=== PATIENT | female | born 1965 | race Caucasian/White ===

== ENCOUNTER 2016-07-10 15:06 | Inpatient (IN) ==
[2016-07-10] MEDS ORDERED: DEXTROSE 50% 25 GM/50 ML VIAL IV ONE ×2 (15:22→16:57)
[2016-07-10] MEDS ORDERED: SODIUM CHLORIDE 0.9% 1,000 ML IV STA ×2 (15:47→17:11)
[2016-07-10] MEDS ORDERED: DEXTROSE 50% 25 GM/50 ML VIAL IV STA ×2 (15:52→17:10)
[2016-07-10 16:01] LABS: Basophils # 0.1 10*3/uL (0.0-0.2); Basophils % 0.4 % (0.0-0.8); Eosinophils # 0.2 10*3/uL (0.0-0.87); Eosinophils % 1.4 % (0.00-10.9); Hematocrit 41.4 VOL% (35.7-47.0); Hemoglobin 13.7 GM/DL (12.0-16.0); Immature Granulocytes % 0.7 %; Immature Granulocytes Absolute 0.11 #; Lymphocytes # 3.5 10*3/uL (1.4-4.0); Lymphocytes % 21.6 % (21.3-54.2); Mean Corpuscular HGB Conc 33.1 GM/DL (32-36); Mean Corpuscular Hemoglobin 30 PG (27-34); Mean Corpuscular Volume 91.8 FL (87-102); Mean Platelet Volume 10.7 FL (9.6-12.0); Monocytes # 1.2 10*3/uL (0.11-0.8); Monocytes % 7.3 % (1.7-12.7); Neutrophils # 11.2 10*3/uL (1.4-7.4); Neutrophils % 68.6 % (38.7-73.9); Platelet Count 358 T/CUMM (130-400); Red Blood Count 4.51 MC/CUMM (3.8-5.5); Red Cell Distribution Width 14.3 % (9.3-17.3); White Blood Count 16.3 T/CUMM (4-12)
[2016-07-10 16:12] LABS: Albumin 4.2 G/DL (3.4-5.0); Bilirubin,Total 0.5 MG/DL (0.2-1.0); Calcium 9.7 MG/DL (8.5-10.1); Osmolality,Calculated 265.1 MOS/KG (273-304); Potassium 4.1 MMOL/L (3.5-5.1); Total Protein 8.4 G/DL (6.4-8.3)
--- NOTE | 2016-07-10 16:22 | XRay Report ---
Referring Physician: Derek Angeles Exam: XR chest 1V portable Date: July 10, 2016 at 4:10 PM Reason: Altered mental status Comparison: Chest one view portable November 26, 2015 Findings: An electronic device is again present with leads projecting at the chest, slightly to the right of midline. The cardiac silhouette is normal in size. The interstitial markings and pulmonary vasculature are prominent, suggesting mild pulmonary edema. No pneumothorax or pleural fluid is identified. No acute osseous process is seen. Impression: The pulmonary vasculature and interstitial markings are prominent, especially in the right perihilar region. This is concerning for mild pulmonary edema. PROCEDURE INTERPRETED AT [facility] DEPARTMENT OF RADIOLOGY Final Report Signed by: Dr. Trey Chaney
[2016-07-10 16:49] LABS: Apearance,Urine CLOUDY (Clear); Blood, Urine Negative (Negative); Glucose,Urine (UA) >=500 mg/dL (Negative); Hyaline Casts,Urine 2 /LPF (0-3); Ketones,Urine 5 mg/dL (Negative); Mucus,Urine Occasional /LPF (Occasional); Nitrite,Urine Negative (Negative); Protein,Urine 30 MG/DL; RBC,Urine 1 /HPF (0-4); Urine Specific Gravity 1.022 (1.001-1.035); WBC,Urine 5 /HPF (0-6)
[2016-07-10 16:50] LABS: Bilirubin,Urine Moderate mg/dL (Negative); Urine Color Yellow (Yellow)
--- NOTE | 2016-07-10 17:35 | EKG Report ---
Stationary ECG Study [facility] ER Test Date: 07/10/2016 5:33:46 PM Pat Name: HERSON ANGULO Department: Room: Gender: F Unbundler: : 1965 Requested by: Derek Moraes Order Number: [id number] Reading MD: SEVERINO AVALOS Intervals [place] Rate: 92 P: 62 NE: 160 QRS: 55 QRSD: 87 T: 64 QT: 386 QTc: 435 Interpretive Statements SINUS RHYTHM at 92 bpm LOW QRS VOLTAGE IN PRECORDIAL LEADS Electronically Signed On 07-14-16 16:12:48 CDT by SEVERINO AVALOS [email or web address]
[2016-07-10] MEDS ORDERED: GLUCAGON 1 MG VIAL IM PRN (17:52)
[2016-07-10] MEDS ORDERED: DEXTROSE 50% 25 GM/50 ML VIAL IV PRN (17:52)
[2016-07-10] MEDS ORDERED: ONDANSETRON 4 MG/2 ML VIAL IV PRN (17:52)
[2016-07-10] MEDS ORDERED: ACETAMINOPHEN 325 MG TABLET PO PRN (17:52)
[2016-07-10] MEDS ORDERED: SODIUM CHLORIDE 0.9% 1,000 ML IV SCH (18:00)
[2016-07-10] MEDS ORDERED: DEXTROSE 5% 1,000 ML IV SCH (18:15)
--- NOTE | 2016-07-10 18:37 | Ultrasound Report ---
Referring Physician: Derek Angeles Exam: US gallbladder Date: July 10, 2016 Reason: Right upper quadrant abdominal pain Comparison: Limited abdominal ultrasound July 04, 2009 Technique: Grayscale and color flow ultrasound images of the right abdomen were obtained. Ultrasound images were captured and stored. Findings: The liver measures 19 cm in length. No suspicious hepatic lesion is identified. No gallstones are seen. However, there are a few gallbladder crystals. There is also mild shadowing at the gallbladder wall. This is similar to before and suggests Rokitansky-Aschoff sinuses/adenomyosis. No gallbladder wall calcification is seen on a previous CT. No gallbladder wall thickening or pericholecystic fluid is identified. However, the property caretaker reports a positive sonographic Lr's sign. The common bile duct is mildly prominent, measuring 0.6 cm in diameter. The pancreas is largely obscured by bowel gas. The right kidney measures 12.2 x 4.4 x 3.7 cm. No right hydronephrosis or suspicious renal lesion is identified. No ascites is seen. Impression: 1. There is again suggestion of cholesterolosis and Rokitansky-Aschoff sinuses/adenomyosis. This is similar to the previous study of July 04, 2009. The property caretaker also reports a positive sonographic Lr's sign. This is nonspecific given the otherwise normal appearance of the gallbladder. Further evaluation could be performed with a nuclear medicine biliary scan. 2. The common bile duct is mildly prominent, measuring 0.6 cm in diameter. A distal obstructing process is difficult to exclude, and please correlate with bilirubin levels. PROCEDURE INTERPRETED AT [facility] DEPARTMENT OF RADIOLOGY Final Report Signed by: Dr. Trey Chaney
[2016-07-10] MEDS ORDERED: SODIUM CHLORIDE 0.9% 500 ML IV ONE (22:17)
[2016-07-10] MEDS ORDERED: SUCRALFATE 1 GM/10 ML UDCUP PO PRN (22:39)
[2016-07-10] MEDS: SODIUM CHLORIDE 0.9% 1,000 ML IV SCH (22:41)
--- NOTE | 2016-07-10 22:52 | Family Practice History&Phys ---
Assessment and Plan (1) Diabetic ketoacidosis Status: Acute Assessment and plan: We will admit to the intensive care start on fluids and appropriate therapy Current Visit: No (2) Metabolic encephalopathy Status: Acute Assessment and plan: We will aggressively treat the diabetes and look for other sources of infection Current Visit: No (3) adult attention deficit disorder Status: Chronic Assessment and plan: Stable on present medication Current Visit: No (4) hypertension Status: Chronic Assessment and plan: Stable at present Current Visit: No (5) psoriatic arthritis Status: Chronic Assessment and plan: Stable on present medication Current Visit: No (6) type 2 diabetes mellitus Status: Chronic Assessment and plan: Blood sugars have been somewhat labile. Difficult to have patient comply with diet and exercise Current Visit: No History of Present Illness Chief complaint: Weakness, dizziness, and hyperglycemia History of present illness: Ms. Hernandez is a 51 year old female Patient is a 51-year-old white female well known to me who was seen in emergency room complaining of weakness, dizziness, confusion since awakening this a.m. Patient states that she checked her blood sugar is greater than 600. Family states that she was confused and disoriented on awakening this a.m. Patient related that sugars have been under adequate control until today. She was noted to have a blood sugar of 32 on arrival at the emergency room. She was given D50 but blood sugars initially remained low. Also noted to be hypotensive and confused. Denies chills fever cough nausea vomiting or any other related complaints. Patient was hospitalized in January with similar problems. In view of degree of symptoms she is being admitted to intensive care close observation therapy Home Medications Medication Instructions Recorded Confirmed Type Amitriptyline [Elavil] 10 mg PO TID 05/24/15 07/10/16 History Dextroamphetamine/Amphetamine 10 mg PO 1300 05/24/15 07/10/16 History [Adderall 10 mg Tablet] Gabapentin Cap/Tab [Neurontin 600 mg PO TID 05/24/15 07/10/16 History Cap/Tab] Losartan Potassium 50 mg PO QAM 05/24/15 07/10/16 History Pravastatin [Pravachol] 40 mg PO QAM 05/24/15 07/10/16 History Venlafaxine [Effexor] 150 mg PO BID 05/24/15 07/10/16 History Dextroamphetamine/Amphetamine 20 mg PO 0700 07/10/16 07/10/16 History [Dextroamp-Amphetamin 10 mg Tab] Insulin NPH Hum/Reg Insulin Hm 36 unit SUBCUT QPM 07/10/16 07/10/16 History [NovoLIN 70/30] Insulin NPH Hum/Reg Insulin Hm 49 unit SUBCUT QAM 07/10/16 07/10/16 History [NovoLIN 70/30] Insulin Regular, Human [NovoLIN R] 0 units SUBCUT DAILY PRN 07/10/16 07/10/16 History Pantoprazole Tab [Protonix Tab] 40 mg PO QAM 07/10/16 07/10/16 History Pioglitazone [Actos] 15 mg PO QAM 07/10/16 07/10/16 History Quetiapine Fumarate [Quetiapine 200 mg PO BEDTIME 07/10/16 07/10/16 History Fumarate] Sucralfate Liquid [Carafate Liquid] 1 gm PO ACHS PRN 07/10/16 07/10/16 History Allergies Allergy/AdvReac Type Severity Reaction Status Date / Time azithromycin [From Zithromax] Allergy Unknown/Unable Verified 11/26/15 07:57 to obtain Paroxetine [From Paxil] Allergy Unknown/Unable Verified 11/26/15 07:57 to obtain sertraline [From Zoloft] Allergy Unknown/Unable Verified 11/26/15 07:57 to obtain Zolpidem [From Ambien] Allergy Unknown/Unable Verified 11/26/15 07:57 to obtain Medical,Surgical,& Family Hx - Medical History Cardio: History of: Hypertension Psychological: History of: Anxiety Disorders, ADHD, Depression No history of: Bipolar Disorder, Psychiatric Problems Neurology: History of: Migraine No history of: Seizures Endocrine: History of: Diabetes Mellitus (IDDM), Dyslipidemia Rheumatology: History of;: Fibromyalgia Respiratory: History of: COPD Gastrointestinal: History of: GERD, Hemorrhoids, Polyps Musculoskeletal: History of: Back/Neck Problems (ruptured disk in neck and back) , Degenerative Disk Disease, Herniated Disk (in neck. stimulator in place) Hematology: No history of: Blood Transfusion Reaction Other: History of: Skin Problems (psoriasis with psoriatic arthritis) No history of: Anesthesia Reactions - Surgical History Abdominal Surgeries: Surgical HX of: Appendectomy, Colonoscopy, EGD, Hernia Repair Reproductive Surgeries: Surgical HX of;: Section, Hysterectomy Orthopedic Surgeries: Surgical HX of;: Implanted Devices (stimulator), Orthopedic Surgery (carpal tunnel bilat) - Family History Family History: Reports;: Family Cancer (dad-colon), Family Diabetes (unknown; fathers side), Family Hypertension (mom and dad) - Social History Smoking Status: Current every day smoker Frequency of Alcohol Use: None Type of Drug Use: None Marital Status: Lives With:: Spouse Functional capacity: independent ambulation Exam - Constitutional Vitals: Period Temp Pulse Resp BP Sys/Westfall Pulse Ox Last 24 Hr 95-98 16-20 84-98/57-66 97-97 General appearance: mild distress - Head Head exam: Present: normal inspection - ENT ENT exam: Present: normal exam - Neck Neck exam: Present: normal inspection - Respiratory Respiratory exam: Present: clear to auscultation bilaterally - Cardiovascular Cardiovascular exam: Present: tachycardia - GI/Abdominal GI/Abdominal exam: Present: hyperactive bowel sounds, tenderness - Extremities Exam Extremities exam: Present: normal inspection - Back Exam Back exam: Present: normal inspection - Neurological Exam Neurological exam: Present: altered - Psychiatric Psychiatric exam: Present: flat affect - Skin Skin exam: Present: normal color Results - Labs CBC & BMP: 07/10/16 15:27 07/10/16 15:27
[2016-07-11] MEDS ORDERED: GLUCAGON 1 MG VIAL IM PRN ×2 (01:28→08:16)
[2016-07-11] MEDS: INSULIN LISPRO 100 UNIT/ML SUBCUT SCH ×5 (01:58→22:58)
[2016-07-11] MEDS: DOCUSATE SODIUM 100 MG CAPSULE PO SCH ×3 (01:59→22:57)
[2016-07-11] MEDS: SODIUM CHLORIDE 0.9% 1,000 ML IV SCH ×2 (03:11→11:11)
[2016-07-11 05:02] LABS: Basophils % 0.4 % (0.0-0.8); Eosinophils # 0.3 10*3/uL (0.0-0.87); Eosinophils % 3.2 % (0.00-10.9); Hematocrit 35.5 VOL% (35.7-47.0); Hemoglobin 11.5 GM/DL (12.0-16.0); Immature Granulocytes % 0.3 %; Immature Granulocytes Absolute 0.03 #; Lymphocytes % 29.3 % (21.3-54.2); Mean Corpuscular HGB Conc 32.4 GM/DL (32-36); Mean Corpuscular Hemoglobin 30 PG (27-34); Mean Corpuscular Volume 92.7 FL (87-102); Mean Platelet Volume 10.2 FL (9.6-12.0); Monocytes # 0.7 10*3/uL (0.11-0.8); Monocytes % 6.4 % (1.7-12.7); Neutrophils # 6.3 10*3/uL (1.4-7.4); Neutrophils % 60.4 % (38.7-73.9); Platelet Count 232 T/CUMM (130-400); Red Blood Count 3.83 MC/CUMM (3.8-5.5); Red Cell Distribution Width 14.3 % (9.3-17.3); White Blood Count 10.4 T/CUMM (4-12)
[2016-07-11 05:46] LABS: Bilirubin,Total 0.6 MG/DL (0.2-1.0); Calcium 7.8 MG/DL (8.5-10.1); Osmolality,Calculated 289.1 MOS/KG (273-304); Potassium 3.7 MMOL/L (3.5-5.1); Risk Ratio 3.05; Total Protein 5.4 G/DL (6.4-8.3); VLDL CHOLESTEROL 21.4 MG/DL
[2016-07-11 05:47] LABS: Free T4 (Free Thyroxine) 0.96 NG/DL (0.76-1.46); Thyroid Stimulating Hormone 0.669 uIU/ml (0.358-3.74)
--- NOTE | 2016-07-11 07:40 | XRay Report ---
XR chest 1V portable Indication: SOB Comparison: Chest x-ray dated July 10, 2016 at 4:12 PM Technique: Single frontal view of the chest Findings: Heart size appears within normal limits. Mild progression of bilateral perihilar opacities which may reflect pneumonia or pulmonary edema. Osseous and surrounding soft tissue structures appear grossly unchanged. IMPRESSION: As above. PROCEDURE INTERPRETED AT [facility] DEPARTMENT OF RADIOLOGY Final Report Signed by: Dr Rene Head
[2016-07-11] MEDS ORDERED: DEXTROSE 50% 25 GM/50 ML VIAL IV PRN (08:16)
[2016-07-11] MEDS: GABAPENTIN 300 MG CAPSULE PO SCH ×3 (10:46→22:57)
[2016-07-11] MEDS: PRAVASTATIN 40 MG TABLET PO SCH (10:46)
[2016-07-11] MEDS: PANTOPRAZOLE 40 MG TABLET PO SCH (10:47)
[2016-07-11] MEDS: AMITRIPTYLINE 10 MG TABLET PO SCH ×3 (10:49→22:57)
[2016-07-11] MEDS: VENLAFAXINE 75 MG TABLET PO SCH ×2 (10:50→22:57)
[2016-07-11] MEDS: INSULIN NPH/REGULAR 70/30 100 UNIT/ML SUBCUT SCH (10:52)
[2016-07-11] MEDS: PIOGLITAZONE 15 MG TABLET PO SCH (10:52)
--- NOTE | 2016-07-11 12:14 | Family Practice Progress Note ---
Family Practice - PN: Subj Interval history: Patient is this a.m. states that she feels much better. She cannot think of any change in her diet and activity are symptoms that would explain the increase in her blood sugars. Her a.m. labs are unremarkable. Chest x-ray reveals possible bibasilar opacities but seems to be nonspecific and does not clarify whether this is true pneumonia. Ketones were negative. Did have an abnormal gallbladder ultrasound and is scheduled to have a HIDA scan this a.m.. Her physical examination is otherwise stable. Plan to transfer to the floor and continue present evaluation and treatment. If HIDA scan is abnormal will need to have surgical evaluation. Exam (Progress Note) - Constitutional Vitals: Period Temp Pulse Resp BP Sys/Westfall Pulse Ox Last 24 Hr 97.7 F-98.4 F 81-99 11-30 83-122/56-89 92-98 Results - Labs CBC & BMP: 07/11/16 04:34 07/11/16 04:34 Assessment and Plan (1) Diabetic ketoacidosis Status: Acute Assessment and plan: We will admit to the intensive care start on fluids and appropriate therapy Current Visit: No (2) Metabolic encephalopathy Status: Acute Assessment and plan: We will aggressively treat the diabetes and look for other sources of infection Current Visit: No (3) adult attention deficit disorder Status: Chronic Assessment and plan: Stable on present medication Current Visit: No (4) hypertension Status: Chronic Assessment and plan: Stable at present Current Visit: No (5) psoriatic arthritis Status: Chronic Assessment and plan: Stable on present medication Current Visit: No (6) type 2 diabetes mellitus Status: Chronic Assessment and plan: Blood sugars have been somewhat labile. Difficult to have patient comply with diet and exercise Current Visit: No
--- NOTE | 2016-07-11 15:25 | Nuclear Medicine Report ---
Nuclear medicine hepatobiliary scan Indication: Cholelithiasis Findings: The patient was injected with 5.0 mCi of 90 9M technetium Choletec intravenously. There is prompt hepatic uptake and excretion into the biliary system. Gallbladder fills normally. The patient was given 8 oz. of Ensure. Gallbladder ejection fraction is estimated at 48 %. Impression: Normal nuclear medicine hepatobiliary scan. PROCEDURE INTERPRETED AT [facility] DEPARTMENT OF RADIOLOGY Final Report Signed by: Dr. Bruce Ozuna
[2016-07-11] MEDS ORDERED: INSULIN NPH/REGULAR 70/30 100 UNIT/ML SUBCUT SCH (21:00)
[2016-07-11] MEDS: QUEtiapine 100 MG TABLET PO SCH (22:57)
[2016-07-12 06:01] LABS: Basophils # 0.1 10*3/uL (0.0-0.2); Basophils % 0.7 % (0.0-0.8); Eosinophils # 0.2 10*3/uL (0.0-0.87); Hematocrit 37.1 VOL% (35.7-47.0); Immature Granulocytes % 0.3 %; Immature Granulocytes Absolute 0.03 #; Lymphocytes # 1.9 10*3/uL (1.4-4.0); Lymphocytes % 21.4 % (21.3-54.2); Mean Corpuscular HGB Conc 32.3 GM/DL (32-36); Mean Corpuscular Hemoglobin 30 PG (27-34); Mean Corpuscular Volume 93.5 FL (87-102); Monocytes # 0.6 10*3/uL (0.11-0.8); Monocytes % 6.4 % (1.7-12.7); Neutrophils # 6.3 10*3/uL (1.4-7.4); Neutrophils % 69.2 % (38.7-73.9); Platelet Count 218 T/CUMM (130-400); Red Blood Count 3.97 MC/CUMM (3.8-5.5); Red Cell Distribution Width 14.1 % (9.3-17.3); White Blood Count 9.1 T/CUMM (4-12)
[2016-07-12 06:36] LABS: Albumin 3.2 G/DL (3.4-5.0); Bilirubin,Total 0.7 MG/DL (0.2-1.0); Calcium 8.6 MG/DL (8.5-10.1); Osmolality,Calculated 285.6 MOS/KG (273-304); Potassium 3.6 MMOL/L (3.5-5.1); Total Protein 5.8 G/DL (6.4-8.3)
[2016-07-12] MEDS: GABAPENTIN 300 MG CAPSULE PO SCH ×3 (08:51→20:40)
[2016-07-12] MEDS: AMITRIPTYLINE 10 MG TABLET PO SCH ×3 (08:51→20:41)
[2016-07-12] MEDS: VENLAFAXINE 75 MG TABLET PO SCH ×2 (08:51→20:40)
[2016-07-12] MEDS: PANTOPRAZOLE 40 MG TABLET PO SCH (08:51)
[2016-07-12] MEDS: PIOGLITAZONE 15 MG TABLET PO SCH (08:51)
[2016-07-12] MEDS: DOCUSATE SODIUM 100 MG CAPSULE PO SCH ×2 (08:51→20:40)
[2016-07-12] MEDS: PRAVASTATIN 40 MG TABLET PO SCH (08:51)
[2016-07-12] MEDS: INSULIN NPH/REGULAR 70/30 100 UNIT/ML SUBCUT SCH (08:52)
[2016-07-12] MEDS: SODIUM CHLORIDE 0.9% 1,000 ML IV SCH ×4 (08:54→15:27)
[2016-07-12] MEDS: INSULIN LISPRO 100 UNIT/ML SUBCUT SCH ×5 (14:45→23:33)
[2016-07-12] MEDS: LOSARTAN 50 MG TABLET PO SCH (16:51)
[2016-07-12] MEDS: LORazepam 1 MG TABLET PO SCH ×2 (16:51→20:41)
--- NOTE | 2016-07-12 16:55 | Internal Med Progress Note ---
Assessment and Plan (1) Diabetic ketoacidosis Status: Resolved Current Visit: Yes Qualifiers: Diabetes mellitus type: type 2 (2) Hyponatremia Status: Resolved Current Visit: Yes (3) Noncompliance Status: Chronic Current Visit: Yes (4) adult attention deficit disorder Status: Chronic Current Visit: Yes (5) chronic pain syndrome Status: Chronic Current Visit: Yes (6) hyperlipidemia Status: Chronic Current Visit: No (7) hypertension Status: Chronic Current Visit: Yes (8) psoriatic arthritis Status: Chronic Current Visit: No (9) type 2 diabetes mellitus Status: Chronic Current Visit: Yes (10) Migraine Status: Chronic Current Visit: Yes Qualifiers: Migraine type: without aura Status migrainosus presence: without status migrainosus Intractability: not intractable Qualified Code(s): G43.009 - Migraine without aura, not intractable, without status migrainosus Internal Medicine - PN: Subj Interval history: This is a 51 year old female patient of Dr. Tadeo with history of DM, HTN, psych issues, dyslipidemia, migraine headaches, who presented upon admission with severe hyperglycemia and treated for diabetic ketoacidosis and hyponatremia in the CCU. She reports fluctuations of both glucose levels and blood pressure. However, she also reports eating chocolate, and was drinking Coke upon rounds today. She had hypoglycemic drop earlier. Will hold home insulin dose for now, and use sliding scale. Exam (Progress Note) - Constitutional Vitals: Period Temp Pulse Resp BP Sys/Westfall Pulse Ox Last 24 Hr 97.3 F-98.1 F 73-92 16-20 111-153/54-83 95-98 General appearance: no acute distress - Respiratory Respiratory exam: Present: clear to auscultation bilaterally - Cardiovascular Cardiovascular exam: Present: regular rate and rhythm - GI/Abdominal GI/Abdominal exam: Present: normal bowel sounds, soft. Absent: tenderness - Extremities Exam Extremities exam: Absent: edema - Neurological Exam Neurological exam: Present: alert, oriented X3 - Psychiatric Psychiatric exam: Present: normal mood - Skin Skin exam: Present: warm, dry Results - Labs CBC & BMP: 07/12/16 05:46 07/12/16 11:57
[2016-07-12] MEDS: SODIUM CHLORIDE 0.45% 1,000 ML IV SCH (18:11)
[2016-07-12] MEDS: QUEtiapine 100 MG TABLET PO SCH (20:41)
[2016-07-12] MEDS: KETOROLAC 15 MG/1 ML VIAL IV SCH (22:16)
[2016-07-13 05:00] LABS: Basophils # 0.1 10*3/uL (0.0-0.2); Basophils % 0.7 % (0.0-0.8); Eosinophils # 0.3 10*3/uL (0.0-0.87); Eosinophils % 3.6 % (0.00-10.9); Hematocrit 36.7 VOL% (35.7-47.0); Hemoglobin 11.7 GM/DL (12.0-16.0); Immature Granulocytes % 0.3 %; Immature Granulocytes Absolute 0.02 #; Lymphocytes # 3.4 10*3/uL (1.4-4.0); Lymphocytes % 45.1 % (21.3-54.2); Mean Corpuscular HGB Conc 31.9 GM/DL (32-36); Mean Corpuscular Hemoglobin 30 PG (27-34); Mean Corpuscular Volume 93.9 FL (87-102); Mean Platelet Volume 9.8 FL (9.6-12.0); Monocytes # 0.6 10*3/uL (0.11-0.8); Monocytes % 7.7 % (1.7-12.7); Neutrophils # 3.2 10*3/uL (1.4-7.4); Neutrophils % 42.6 % (38.7-73.9); Platelet Count 211 T/CUMM (130-400); Red Blood Count 3.91 MC/CUMM (3.8-5.5); White Blood Count 7.6 T/CUMM (4-12)
[2016-07-13 05:21] LABS: Alanine Aminotransferase 16 U/L (13-56); Albumin 2.8 G/DL (3.4-5.0); Alkaline Phosphatase 78 U/L (45-117); Aspartate Amino Transferase 10 U/L (0-37); Bilirubin,Total < 0.39 MG/DL (0.2-1.0); Blood Urea Nitrogen 14 MG/DL (7-18); Calcium 8.4 MG/DL (8.5-10.1); Glucose 118 MG/DL (74-106); Magnesium 2.1 MG/DL (1.8-2.4); Osmolality,Calculated 289.7 MOS/KG (273-304); Potassium 4.1 MMOL/L (3.5-5.1); Sodium 145 MMOL/L (136-145); Total Protein 5.2 G/DL (6.4-8.3)
[2016-07-13] MEDS: KETOROLAC 15 MG/1 ML VIAL IV SCH ×3 (07:20→15:22)
[2016-07-13] MEDS: SODIUM CHLORIDE 0.45% 1,000 ML IV SCH (07:20)
[2016-07-13] MEDS: INSULIN LISPRO 100 UNIT/ML SUBCUT SCH ×3 (10:13→16:30)
[2016-07-13] MEDS: DOCUSATE SODIUM 100 MG CAPSULE PO SCH ×2 (10:14→20:53)
[2016-07-13] MEDS: POTASSIUM CHLORIDE 10 MEQ TABLET PO SCH (10:14)
[2016-07-13] MEDS: VENLAFAXINE 75 MG TABLET PO SCH ×2 (10:14→20:53)
[2016-07-13] MEDS: PANTOPRAZOLE 40 MG TABLET PO SCH (10:14)
[2016-07-13] MEDS: LOSARTAN 50 MG TABLET PO SCH (10:15)
[2016-07-13] MEDS: LORazepam 1 MG TABLET PO SCH ×3 (10:15→20:53)
[2016-07-13] MEDS: PIOGLITAZONE 15 MG TABLET PO SCH (10:15)
[2016-07-13] MEDS: GABAPENTIN 300 MG CAPSULE PO SCH ×3 (10:15→20:53)
[2016-07-13] MEDS: AMITRIPTYLINE 10 MG TABLET PO SCH ×3 (10:16→20:53)
--- NOTE | 2016-07-13 15:33 | Internal Med Progress Note ---
Assessment and Plan (1) Noncompliance Status: Chronic Current Visit: Yes (2) chronic pain syndrome Status: Chronic Current Visit: Yes (3) hyperlipidemia Status: Chronic Current Visit: No (4) hypertension Status: Chronic Current Visit: Yes (5) type 2 diabetes mellitus Status: Chronic Current Visit: Yes (6) Migraine Status: Chronic Current Visit: Yes Qualifiers: Migraine type: without aura Status migrainosus presence: without status migrainosus Intractability: not intractable Qualified Code(s): G43.009 - Migraine without aura, not intractable, without status migrainosus Internal Medicine - PN: Subj Interval history: This is a 51 year old female patient of Dr. Tadeo with history of DM, HTN, psych issues, dyslipidemia, migraine headaches, who presented upon admission with severe hyperglycemia and treated for diabetic ketoacidosis and hyponatremia in the CCU. She reports fluctuations of both glucose levels and blood pressure. However, she also reports eating chocolate, and was drinking Coke upon rounds today. She had hypoglycemic drop earlier. Will hold home insulin dose for now, and use sliding scale. Thursday, she reports headache resolved with Toradol IV. She is feeling better today, but had four Cokes in her room. Discussed dietary modifications needed to help control glucose levels. Will order Diabetic Ed and dietary. Nurse called later in the day that IV site infiltrated, and so discontinued Toradol IV. Started Mobic. Exam (Progress Note) - Constitutional Vitals: Period Temp Pulse Resp BP Sys/Westfall Pulse Ox Last 24 Hr 98.4 F-99.3 F 68-87 16-20 111-137/56-84 92-97 General appearance: no acute distress - Respiratory Respiratory exam: Present: clear to auscultation bilaterally - Cardiovascular Cardiovascular exam: Present: regular rate and rhythm - GI/Abdominal GI/Abdominal exam: Present: soft. Absent: tenderness - Extremities Exam Extremities exam: Absent: edema - Neurological Exam Neurological exam: Present: alert, oriented X3 - Psychiatric Psychiatric exam: Present: normal affect, normal mood - Skin Skin exam: Present: warm, dry Results - Labs CBC & BMP: 07/13/16 04:42 07/13/16 04:42
[2016-07-13] MEDS: QUEtiapine 100 MG TABLET PO SCH (20:53)
[2016-07-13] MEDS ORDERED: PRAVASTATIN 20 MG TABLET PO SCH (21:00)
[2016-07-13] MEDS ORDERED: PRAVASTATIN 40 MG TABLET PO SCH (21:00)
[2016-07-14 05:40] LABS: Basophils % 0.6 % (0.0-0.8); Eosinophils # 0.3 10*3/uL (0.0-0.87); Hematocrit 35.3 VOL% (35.7-47.0); Hemoglobin 11.3 GM/DL (12.0-16.0); Immature Granulocytes % 0.3 %; Immature Granulocytes Absolute 0.02 #; Lymphocytes % 42.7 % (21.3-54.2); Mean Corpuscular Hemoglobin 30 PG (27-34); Mean Corpuscular Volume 92.4 FL (87-102); Mean Platelet Volume 10.4 FL (9.6-12.0); Monocytes # 0.6 10*3/uL (0.11-0.8); Monocytes % 7.9 % (1.7-12.7); Neutrophils # 3.2 10*3/uL (1.4-7.4); Neutrophils % 44.5 % (38.7-73.9); Platelet Count 228 T/CUMM (130-400); Red Blood Count 3.82 MC/CUMM (3.8-5.5); Red Cell Distribution Width 13.9 % (9.3-17.3); White Blood Count 7.1 T/CUMM (4-12)
[2016-07-14 06:24] LABS: Calcium 8.5 MG/DL (8.5-10.1); Potassium 4.2 MMOL/L (3.5-5.1); Risk Ratio 3.38; VLDL CHOLESTEROL 29.2 MG/DL
[2016-07-14] MEDS: INSULIN LISPRO 100 UNIT/ML SUBCUT SCH ×2 (07:13→07:55)
[2016-07-14 07:52] VITALS: BP 138/70
--- NOTE | 2016-07-14 08:34 | Discharge Summary ---
Hospital Course - Hospital Course Hospital Course: Ms. Hernandez is a 51 year old female Patient is a 51-year-old white female well known to me who was seen in emergency room complaining of weakness, dizziness, confusion since awakening this a.m. Patient states that she checked her blood sugar is greater than 600. Family states that she was confused and disoriented on awakening this a.m. Patient related that sugars have been under adequate control until today. She was noted to have a blood sugar of 32 on arrival at the emergency room. She was given D50 but blood sugars initially remained low. Also noted to be hypotensive and confused. Denies chills fever cough nausea vomiting or any other related complaints. Patient was hospitalized in January with similar problems. In view of degree of symptoms she is being admitted to intensive care close observation therapy Hospital course-patient was admitted to intensive care close observation and therapy. She was initially hypotensive. This responded to fluids. Her blood sugars rapidly came under control. Apparently this was a sudden onset of elevated sugars. Patient relates she has not been following diet and apparently has not been taking medications as prescribed. Patient was stabilized and transferred to the floor. She was noted to be drinking can drinks and other foods while in her room. Initially was a question about gallbladder disease. HIDA scan was negative. Studies were stable. Patient is much improved at time of discharge. She is to diabetic education in the past. Discussed with patient and daughter that she must follow diet exercise and take medications as prescribed. Patient states she understands and will try harder to comply. Patient stable at time of discharge. Will discharge to home care and follow and the clinic. Call or return to the emergency room if condition worsens or new problems develop Diagnosis - Discharge Diagnosis (1) Diabetic ketoacidosis Status: Resolved (2) Metabolic encephalopathy Status: Acute (3) adult attention deficit disorder Status: Chronic (4) hypertension Status: Chronic (5) psoriatic arthritis Status: Chronic (6) type 2 diabetes mellitus Status: Chronic Discharge Plan - Discharge Data Disposition: Disch To Home/Self Care Condition at Discharge: Stable Discharge Diet: advance to your usual diet, diabetic diet Activity: resume usual activities as tolerated Hygiene: no restrictions Weight Bearing at Discharge: full weight bearing Driving: no restrictions Contact your physician if you experience:: fever over 101, Nausea/Vomiting, Shortness of breath - Discharge Medications Continue Pravastatin [Pravachol] 40 mg PO QAM Amitriptyline [Elavil] 10 mg PO TID Venlafaxine [Effexor] 150 mg PO BID Gabapentin Cap/Tab [Neurontin Cap/Tab] 600 mg PO TID Losartan Potassium 50 mg PO QAM Dextroamphetamine/Amphetamine [Adderall 10 mg Tablet] 10 mg PO 1300 Insulin NPH Hum/Reg Insulin Hm [NovoLIN 70/30] 49 unit SUBCUT QAM Insulin NPH Hum/Reg Insulin Hm [NovoLIN 70/30] 36 unit SUBCUT QPM Pantoprazole Tab [Protonix Tab] 40 mg PO QAM Sucralfate Liquid [Carafate Liquid] 1 gm PO ACHS PRN PRN Reason: ULCER Insulin Regular, Human [NovoLIN R] 0 units SUBCUT DAILY PRN PRN Reason: Glucose Management Dextroamphetamine/Amphetamine [Dextroamp-Amphetamin 10 mg Tab] 20 mg PO 0700 Quetiapine Fumarate 200 mg PO BEDTIME Pioglitazone [Actos] 15 mg PO QAM - Follow Up or Referral Follow Up: Ed Tadeo DO [Physician] - 2 Weeks - Forms/Instructions Exam - Constitutional Vitals: Period Temp Pulse Resp BP Sys/Westfall Pulse Ox Last 24 Hr 97.9 F-99.3 F 68-87 16-20 120-139/60-75 93-98 General appearance: no acute distress - Head Head exam: Present: normal inspection - Eye Pupils: Present: CHRISTOPHER - ENT ENT exam: Present: normal exam - Neck Neck exam: Present: normal inspection - Respiratory Respiratory exam: Present: clear to auscultation bilaterally - Cardiovascular Cardiovascular exam: Present: regular rate and rhythm - GI/Abdominal GI/Abdominal exam: Present: normal bowel sounds - Extremities Exam Extremities exam: Present: normal inspection - Back Exam Back exam: Present: normal inspection - Neurological Exam Neurological exam: Present: alert - Psychiatric Psychiatric exam: Present: normal affect - Skin Skin exam: Present: normal color Discharge Results Procedures and tests throughout hospitalization: Pending Orders 07/10/16 07:24 Cortisol Free 24 Hr UR Routine Labs on day of discharge: Labs from last 24 hours 07/14/16 07/14/16 07/14/16 07:40 05:00 05:00 WBC 7.1 RBC 3.82 Hgb 11.3 L Hct 35.3 L MCV 92.4 MCH 30 MCHC 32.0 RDW 13.9 Plt Count 228 MPV 10.4 Neut % (Auto) 44.5 Lymph % (Auto) 42.7 Bryan % (Auto) 7.9 Eos % (Auto) 4.0 Baso % (Auto) 0.6 Neut # (Auto) 3.2 Lymph # (Auto) 3.0 Bryan # (Auto) 0.6 Eos # (Auto) 0.3 Baso # (Auto) 0.0 Immature Gran % 0.3 Nucleated RBC % 0.0 Immature Gran # 0.02 Nucleated RBCs # 0.00 Sodium 143 Potassium 4.2 Chloride 109 H Carbon Dioxide 27 Anion Gap 11.2 BUN 18 Creatinine 0.90 GFR Calculation 84 BUN/Creatinine Ratio 20.00 Glucose 191 H POC Glucose 179 H Calculated Osmolality 291.0 Calcium 8.5 Triglycerides 146 Cholesterol 132 LDL Cholesterol 69.0 VLDL Cholesterol 29.2 HDL Cholesterol 39 L Heart Disease Risk Ratio 3.38 07/13/16 07/13/16 07/13/16 19:27 15:15 12:24 WBC RBC Hgb Hct MCV MCH MCHC RDW Plt Count MPV Neut % (Auto) Lymph % (Auto) Bryan % (Auto) Eos % (Auto) Baso % (Auto) Neut # (Auto) Lymph # (Auto) Bryan # (Auto) Eos # (Auto) Baso # (Auto) Immature Gran % Nucleated RBC % Immature Gran # Nucleated RBCs # Sodium Potassium Chloride Carbon Dioxide Anion Gap BUN Creatinine GFR Calculation BUN/Creatinine Ratio Glucose POC Glucose 201 H 134 H 92 Calculated Osmolality Calcium Triglycerides Cholesterol LDL Cholesterol VLDL Cholesterol HDL Cholesterol Heart Disease Risk Ratio 07/13/16 08:22 WBC RBC Hgb Hct MCV MCH MCHC RDW Plt Count MPV Neut % (Auto) Lymph % (Auto) Bryan % (Auto) Eos % (Auto) Baso % (Auto) Neut # (Auto) Lymph # (Auto) Bryan # (Auto) Eos # (Auto) Baso # (Auto) Immature Gran % Nucleated RBC % Immature Gran # Nucleated RBCs # Sodium Potassium Chloride Carbon Dioxide Anion Gap BUN Creatinine GFR Calculation BUN/Creatinine Ratio Glucose POC Glucose 168 H Calculated Osmolality Calcium Triglycerides Cholesterol LDL Cholesterol VLDL Cholesterol HDL Cholesterol Heart Disease Risk Ratio DS: Provider Date of admission: 07/10/16 17:50 Primary care physician: . No PCP Attending physician on admission: Ed Tadeo DO Consults: 07/10/16 17:56 Consult to Case Mgmt/Social Srvs [CONS] Routine Reason for Case Mgmt/Social Srvs: Discharge Planning 07/11/16 03:35 Consult to [facility], Educator [CONS] Routine Reason for Prefabricated Houses Trimmer: Diabetes Education 07/13/16 13:18 Consult to Physician [CONS] Routine Comment: painful callus ball of foot plantar surface Consulting Provider: Nathan Mesa 07/14/16 05:03 Consult to [facility] Center, Educator [CONS] Routine Reason for Prefabricated Houses Trimmer: Re-education Diet Consult to Dietitian [CONS] Routine Reason for Dietitian: Diet Recommendations Consult Comment: diabetic education Discharging clinician: Ed Tadeo DO
[2016-07-14] MEDS ORDERED: MELOXICAM 7.5 MG TABLET PO SCH (09:00)
--- NOTE | 2016-07-14 09:26 | General Surgery Consult Note ---
Assessment and Plan - Time spent with patient Time spent with patient: Less than 30 minutes (1) Foot callus Status: Acute Assessment and plan: Impression: 1. Callus of the right forefoot and heel without ulceration 2. Callus of the left heel with no ulceration. 3. Diabetes mellitus adult onset 4. Questionable peripheral arterial disease lower extremities. Plan: Start some local wound care to soften his calluses pain clean them out. Getting in some special shoes for protection purposes. Get some vascular studies to see what the status of her circulation might be. Eventually try to shave down his calluses and get some protection and special diabetic shoes for her. Current Visit: Yes History of Present Illness Chief complaint: Calluses of the heels and right foot History of present illness: Ms. Hernandez is a 51 year old female diabetic white who has some thick calluses of both heels and of the right forefoot. No clear ulcerations present at this time but the calluses are thickened. Pulses are faint in the foot and she has what sounds like claudication. Will start some wound care to soften these ulcers up to clean him up a little bit knowing that they will need a little bit of debridement to account to get the callus down over time. Try to get her in some protective shoes and get some good wound care going to the foot. Need to get a vascular study in order to see where she stands vascular sol in case she needs additional evaluation. Home Medications Medication Instructions Recorded Confirmed Type Amitriptyline [Elavil] 10 mg PO TID 05/24/15 07/10/16 History Dextroamphetamine/Amphetamine 10 mg PO 1300 05/24/15 07/10/16 History [Adderall 10 mg Tablet] Gabapentin Cap/Tab [Neurontin 600 mg PO TID 05/24/15 07/10/16 History Cap/Tab] Losartan Potassium 50 mg PO QAM 05/24/15 07/10/16 History Pravastatin [Pravachol] 40 mg PO QAM 05/24/15 07/10/16 History Venlafaxine [Effexor] 150 mg PO BID 05/24/15 07/10/16 History Dextroamphetamine/Amphetamine 20 mg PO 0700 07/10/16 07/10/16 History [Dextroamp-Amphetamin 10 mg Tab] Insulin NPH Hum/Reg Insulin Hm 36 unit SUBCUT QPM 07/10/16 07/10/16 History [NovoLIN 70/30] Insulin NPH Hum/Reg Insulin Hm 49 unit SUBCUT QAM 07/10/16 07/10/16 History [NovoLIN 70/30] Insulin Regular, Human [NovoLIN R] 0 units SUBCUT DAILY PRN 07/10/16 07/10/16 History Pantoprazole Tab [Protonix Tab] 40 mg PO QAM 07/10/16 07/10/16 History Pioglitazone [Actos] 15 mg PO QAM 07/10/16 07/10/16 History Quetiapine Fumarate 200 mg PO BEDTIME 07/10/16 07/10/16 History Sucralfate Liquid [Carafate Liquid] 1 gm PO ACHS PRN 07/10/16 07/10/16 History Allergies Allergy/AdvReac Type Severity Reaction Status Date / Time azithromycin [From Zithromax] Allergy Unknown/Unable Verified 11/26/15 07:57 to obtain Paroxetine [From Paxil] Allergy Unknown/Unable Verified 11/26/15 07:57 to obtain sertraline [From Zoloft] Allergy Unknown/Unable Verified 11/26/15 07:57 to obtain Zolpidem [From Ambien] Allergy Unknown/Unable Verified 11/26/15 07:57 to obtain Medical,Surgical,& Family Hx - Medical History Cardio: History of: Hypertension Psychological: History of: Anxiety Disorders, ADHD, Depression No history of: Bipolar Disorder, Psychiatric Problems Neurology: History of: Migraine No history of: Seizures Endocrine: History of: Diabetes Mellitus (IDDM), Dyslipidemia Rheumatology: History of;: Fibromyalgia Respiratory: History of: COPD Gastrointestinal: History of: GERD, Hemorrhoids, Polyps Musculoskeletal: History of: Back/Neck Problems (ruptured disk in neck and back) , Degenerative Disk Disease, Herniated Disk (in neck. stimulator in place) Hematology: No history of: Blood Transfusion Reaction Other: History of: Skin Problems (psoriasis with psoriatic arthritis) No history of: Anesthesia Reactions - Surgical History Cardiac Surgeries: Patient Denies: Cardiac Catheterization Abdominal Surgeries: Surgical HX of: Appendectomy, Colonoscopy, EGD, Hernia Repair Reproductive Surgeries: Surgical HX of;: Section, Hysterectomy Patient denies;: Genitourinary Surgery Orthopedic Surgeries: Surgical HX of;: Implanted Devices (stimulator), Orthopedic Surgery (carpal tunnel bilat) - Family History Family History: Reports;: Family Cancer (dad-colon), Family Diabetes (unknown; fathers side), Family Hypertension (mom and dad) - Social History Smoking Status: Current every day smoker Frequency of Alcohol Use: None Type of Drug Use: None 12 point system: reviewed and no additional remarkable complaints except as stated Exam - Constitutional Vitals: Period Temp Pulse Resp BP Sys/Westfall Pulse Ox Last 24 Hr 97.9 F-99.3 F 68-87 16-20 120-139/60-75 93-98 General appearance: no acute distress - Head Head exam: Present: normal inspection - ENT ENT exam: Present: normal exam - Neck Neck exam: Present: normal inspection - Respiratory Respiratory exam: Present: clear to auscultation bilaterally, rales - Cardiovascular Cardiovascular exam: Present: RRR - GI/Abdominal GI/Abdominal exam: Present: normal bowel sounds, soft - Extremities Exam Extremities exam: Present: other (The left foot has a callus about the heels but otherwise is in pretty good shape with some decreased pulses on palpation. The right foot has a callus at the heel and at the forefoot area with no clear ulcerations no evidence of cellulitis. Pulses are 1+ and there is some edema with legs at this time.). Absent: edema - Back Exam Back exam: Present: normal inspection - Neurological Exam Neurological exam: Present: alert, oriented X3, CN II-XII intact - Skin Skin exam: Present: normal color, warm, dry. Absent: cyanosis, erythema Results - Labs CBC & BMP: 07/14/16 05:00 07/14/16 05:00 Lab Results: I have reviewed the past 24 hour labs Specialty Discharge - Follow Up or Referrals Follow up with: Ed Tadeo DO [Physician] - 07/29/16 11:30 am
[2016-07-14] MEDS: VENLAFAXINE 75 MG TABLET PO SCH (09:58)
[2016-07-14] MEDS: PANTOPRAZOLE 40 MG TABLET PO SCH (09:58)
[2016-07-14] MEDS: AMITRIPTYLINE 10 MG TABLET PO SCH (09:58)
[2016-07-14] MEDS: GABAPENTIN 300 MG CAPSULE PO SCH (09:58)
[2016-07-14] MEDS: DOCUSATE SODIUM 100 MG CAPSULE PO SCH (09:58)
[2016-07-14] MEDS: LOSARTAN 50 MG TABLET PO SCH (09:58)
[2016-07-14] MEDS: PIOGLITAZONE 15 MG TABLET PO SCH (09:58)
[2016-07-14] MEDS: POTASSIUM CHLORIDE 10 MEQ TABLET PO SCH (09:58)
[2016-07-14] MEDS: LORazepam 1 MG TABLET PO SCH (09:58)
[2016-07-14] MEDS ORDERED: PNEUMOCOCCAL VACCINE (23 VALENT) 0.5 ML VIAL IM ONE (10:29)
[2016-07-16 16:26] LABS: Urine Volume 1200 mL
--- NOTE | 2016-09-16 14:52 | Emergency Department Note ---
Desean Ayala Hilary, am scribing for, and in the presence of, Derek Angeles MD 15:49. Karthik Ayala Phillip K, MD, personally performed the services described in this documentation, ascribed by Lisandra Anton in my presence, and it is both accurate and complete [id number] . Arrival - Arrival Chief Complaint: Altered Mental Status Stated Complaint: diabetic sugar level 600 ED Nursing Triage Note: C/o generalized weakness, dizziness, intermittent confusion-onset this morning. Patient states that she thinks that her sugar has been too high. Accucheck 32mg/dl in triage. AOX4 Mode of Arrival: Ambulatory Limitations: No Limitations Source: Patient, RN Notes Reviewed - History of Present Illness HPI Narrative: Pt is a 51 y/o female presenting to the ED with c/o weakness, dizziness and confusion which onset this AM. Pt states that she thinks her sugar is too high because her sugar was reported at 600mg but Accucheck showed 32mg/dl on arrival. Pts daughter is in the room and states that she has been dizzy, confused, trouble concentrating and having conversations with people that are not in the house. She states she had the same problem in January and was Hospitalized. Pt confirms generalized weakness, disoriented, shakes but denies fever,cough, or vomiting. Pt has a PMHx of HTN, Anxiety disorder, ADHD, Depression, migrane, IDDM, Dylipidemia, Fibromyalgia, COPD, herniated and ruptured disks and degenerative disk disease, and psoriasis with psoriatic arthritis. No other complaints or problems stated in the ED. Onset (ago): hour(s) Date of Last Menstrual Period: hysterectomy Allergies/Adverse Reactions: Allergies Allergy/AdvReac Type Severity Reaction Status Date / Time azithromycin [From Zithromax] Allergy Unknown/Unable Verified 11/26/15 07:57 to obtain Paroxetine [From Paxil] Allergy Unknown/Unable Verified 11/26/15 07:57 to obtain sertraline [From Zoloft] Allergy Unknown/Unable Verified 11/26/15 07:57 to obtain Zolpidem [From Ambien] Allergy Unknown/Unable Verified 11/26/15 07:57 to obtain Home Medications: Home Medications Medication Instructions Recorded Confirmed Type Amitriptyline [Elavil] 10 mg PO TID 05/24/15 07/10/16 History Dextroamphetamine/Amphetamine 10 mg PO 1300 05/24/15 07/10/16 History [Adderall 10 mg Tablet] Gabapentin Cap/Tab [Neurontin 600 mg PO TID 05/24/15 07/10/16 History Cap/Tab] Losartan Potassium 50 mg PO QAM 05/24/15 07/10/16 History Pravastatin [Pravachol] 40 mg PO QAM 05/24/15 07/10/16 History Venlafaxine [Effexor] 150 mg PO BID 05/24/15 07/10/16 History Dextroamphetamine/Amphetamine 20 mg PO 0700 07/10/16 07/10/16 History [Dextroamp-Amphetamin 10 mg Tab] Insulin NPH Hum/Reg Insulin Hm 36 unit SUBCUT QPM 07/10/16 07/10/16 History [NovoLIN 70/30] Insulin NPH Hum/Reg Insulin Hm 49 unit SUBCUT QAM 07/10/16 07/10/16 History [NovoLIN 70/30] Insulin Regular, Human [NovoLIN R] 0 units SUBCUT DAILY PRN 07/10/16 07/10/16 History Pantoprazole Tab [Protonix Tab] 40 mg PO QAM 07/10/16 07/10/16 History Pioglitazone [Actos] 15 mg PO QAM 07/10/16 07/10/16 History Quetiapine Fumarate 200 mg PO BEDTIME 07/10/16 07/10/16 History Sucralfate Liquid [Carafate Liquid] 1 gm PO ACHS PRN 07/10/16 07/10/16 History Review of System - Review of System 12 point system: reviewed and no additional remarkable complaints except as stated - Review of System Constitutional: Present: weakness, other (dizziness). Absent: fever Respiratory: Absent: cough Cardiovascular: Absent: chest pain Gastrointestinal: Absent: abdominal pain, nausea, vomiting Neurological: Present: weakness (generalized), confusion Medical,Surgical,& Family Hx - Medical History Cardio: History of: Hypertension Psychological: History of: Anxiety Disorders, ADHD, Depression No history of: Bipolar Disorder, Psychiatric Problems Neurology: History of: Migraine No history of: Seizures Endocrine: History of: Diabetes Mellitus (IDDM), Dyslipidemia Rheumatology: History of;: Fibromyalgia Respiratory: History of: COPD Gastrointestinal: History of: GERD, Hemorrhoids, Polyps Musculoskeletal: History of: Back/Neck Problems (ruptured disk in neck and back) , Degenerative Disk Disease, Herniated Disk (in neck. stimulator in place) Hematology: No history of: Blood Transfusion Reaction Other: History of: Skin Problems (psoriasis with psoriatic arthritis) No history of: Anesthesia Reactions - Surgical History Abdominal Surgeries: Surgical HX of: Appendectomy, Colonoscopy, EGD, Hernia Repair Reproductive Surgeries: Surgical HX of;: Section, Hysterectomy Orthopedic Surgeries: Surgical HX of;: Implanted Devices (stimulator), Orthopedic Surgery (carpal tunnel bilat) - Family History Family History: Reports;: Family Cancer (dad-colon), Family Diabetes (unknown; fathers side), Family Hypertension (mom and dad) - Social History Smoking Status: Current every day smoker Frequency of Alcohol Use: None Type of Drug Use: None Exam Vital Signs: Vital Signs Temperature 98.1 F 07/14/16 07:35 Pulse Rate 78 07/14/16 07:35 Respiratory Rate 16 07/14/16 07:35 Blood Pressure 138/70 07/14/16 07:35 O2 Sat by Pulse Oximetry 98 07/14/16 07:35 - General General appearance: alert, in no apparent distress - Head Head exam: Present: atraumatic, normocephalic - Eye Eye exam: Present: normal appearance, PERRL, EOMI - ENT ENT exam: Present: mucous membranes dry, TM's normal bilaterally - Neck Neck exam: Present: full ROM, trachea midline. Absent: tenderness - Chest Chest inspection: Present: symmetric chest wall rise. Absent: tenderness - Respiratory Respiratory exam: Present: normal lung sounds bilaterally. Absent: respiratory distress - Cardiovascular Cardiovascular exam: Present: regular rate, normal rhythm, normal heart sounds. Absent: murmur, rubs, gallop - Abdominal Exam Abdominal exam: Present: soft, tenderness (diffused tenderness to direct palpation), normal bowel sounds. Absent: distention - Extremities Exam Extremities exam: Present: full ROM. Absent: tenderness - Back Exam Back exam: Present: full ROM. Absent: tenderness - Neurological Exam Neurological exam: Present: alert, oriented X3, CN II-XII intact. Absent: motor sensory deficit - Psychiatric Psychiatric exam: Present: normal affect, normal mood - Skin Skin exam: Present: warm, dry, intact, normal color. Absent: rash Course Course Narrative: Dizziness patient admitted to Dr. Tadeo. Results - Labs CBC & BMP: 07/14/16 05:00 07/14/16 05:00 Lab Results: I have reviewed the patients labs Labs: Laboratory Tests 07/10/16 07/10/16 15:17 15:32 POC Glucose 32 L* 267 H Laboratory Tests 07/10/16 07/10/16 15:27 15:27 WBC 16.3 H RBC 4.51 Hgb 13.7 Hct 41.4 Neut # (Auto) 11.2 H Hood # (Auto) 1.2 H Sodium 135 L Potassium 4.1 Chloride 99 Carbon Dioxide 25 Anion Gap 15.1 H Creatinine 2.00 H BUN/Creatinine Ratio 4.00 L Glucose 46 L Calculated Osmolality 265.1 L AST 46 H Total Protein 8.4 H Globulin 4.2 H Albumin/Globulin Ratio 1.0 L Laboratory Tests 07/10/16 07/10/16 07/10/16 16:37 16:56 17:32 POC Glucose 41 L* 123 H Urine Color Yellow Urine Appearance Cloudy Urine Bilirubin Moderate H Urine Urobilinogen 2.0 H - Diagnostic Findings Procedure: Chest x-ray: report reviewed by me (The pulmonary vasculature and interstitial markings are prominent, especially in the right perihilar region. This is concerning for mild pulmonary edema. ) Disposition Clinical Impression: type 2 diabetes mellitus Case discussed with: patient Disposition: Still a Patient Condition: Stable
== END 2016-07-14 10:55 | disposition home or self-care (01) | DRG 637 ==
LOC: N.ED 15:06 → N.EDINP 17:52 → N.CC 21:26 → N.2E 07-11 13:01
PROVIDERS: ADMIT Family Medicine; ATTEND Family Medicine

== ENCOUNTER 2018-09-03 18:32 | Inpatient (IN) ==
[2018-09-03] MEDS ORDERED: SODIUM CHLORIDE 0.9% 2,000 ML IV STA (18:57)
[2018-09-03 19:06] LABS: Basophils # 0.1 10*3/uL (0.0-0.2); Basophils % 0.4 % (0.0-0.8); Eosinophils # 0.2 10*3/uL (0.0-0.87); Eosinophils % 1.7 % (0.00-10.9); Hematocrit 40.7 VOL% (35.7-47.0); Hemoglobin 12.8 GM/DL (12.0-16.0); Immature Granulocytes % 0.7 %; Immature Granulocytes Absolute 0.08 #; Lymphocytes # 1.5 10*3/uL (1.4-4.0); Lymphocytes % 12.9 % (21.3-54.2); Mean Corpuscular HGB Conc 31.4 GM/DL (32-36); Mean Corpuscular Volume 93.1 FL (87-102); Mean Platelet Volume 9.3 FL (9.6-12.0); Monocytes % 7.6 % (1.7-12.7); Neutrophils % 76.7 % (38.7-73.9); Platelet Count 216 T/CUMM (130-400); Red Blood Count 4.37 MC/CUMM (3.8-5.5); Red Cell Distribution Width 14.4 % (9.3-17.3); White Blood Count 11.5 T/CUMM (4-12)
[2018-09-03] MEDS ORDERED: MORPHINE 4 MG/1 ML VIAL IV STA (19:15)
[2018-09-03 19:18] LABS: Albumin 3.7 G/DL (3.4-5.0); Bilirubin,Total 0.5 MG/DL (0.2-1.0); Calcium 9.1 MG/DL (8.5-10.1); Osmolality,Calculated 276.2 MOS/KG (273-304); Total Protein 7.2 G/DL (6.4-8.3)
[2018-09-03] MEDS ORDERED: ONDANSETRON 4 MG/2 ML VIAL IV PRN (20:24)
[2018-09-03] MEDS: SODIUM CHLORIDE 0.9% 1,000 ML IV SCH (20:30)
[2018-09-03] MEDS ORDERED: MORPHINE 4 MG/1 ML VIAL IV PRN (20:35)
[2018-09-03] MEDS ORDERED: SODIUM CHLORIDE 0.9% 1,000 ML IV STA (20:42)
[2018-09-03] MEDS ORDERED: NOREPINEPHRINE 8 MG in SODIUM CHLORIDE 0.9% 242 ML IV PRN (23:04)
[2018-09-04] MEDS ORDERED: NOREPINEPHRINE 8 MG in SODIUM CHLORIDE 0.9% 242 ML IV PRN (00:01)
[2018-09-04] MEDS: SODIUM CHLORIDE 0.9% 1,000 ML IV SCH ×5 (04:30→22:50)
[2018-09-04 06:25] LABS: Basophils % 0.4 % (0.0-0.8); Eosinophils # 0.2 10*3/uL (0.0-0.87); Eosinophils % 1.8 % (0.00-10.9); Hematocrit 40.2 VOL% (35.7-47.0); Hemoglobin 12.7 GM/DL (12.0-16.0); Immature Granulocytes % 0.3 %; Immature Granulocytes Absolute 0.03 #; Lymphocytes # 1.4 10*3/uL (1.4-4.0); Lymphocytes % 14.9 % (21.3-54.2); Mean Corpuscular HGB Conc 31.6 GM/DL (32-36); Mean Corpuscular Volume 93.1 FL (87-102); Mean Platelet Volume 9.6 FL (9.6-12.0); Monocytes % 8.7 % (1.7-12.7); Neutrophils % 73.9 % (38.7-73.9); Platelet Count 206 T/CUMM (130-400); Red Blood Count 4.32 MC/CUMM (3.8-5.5); Red Cell Distribution Width 14.2 % (9.3-17.3); White Blood Count 9.3 T/CUMM (4-12)
[2018-09-04 06:40] LABS: Albumin 3.3 G/DL (3.4-5.0); Bilirubin,Total 0.5 MG/DL (0.2-1.0); Calcium 8.8 MG/DL (8.5-10.1); Total Protein 6.6 G/DL (6.4-8.3)
[2018-09-04] MEDS ORDERED: GLUCAGON 1 MG VIAL IM PRN (11:20)
[2018-09-04] MEDS ORDERED: DEXTROSE 10% 250 ML BAG IV PRN (11:20)
[2018-09-04] MEDS ORDERED: METOCLOPRAMIDE 5 MG TABLET PO SCH (11:30)
[2018-09-04] MEDS ORDERED: HydrOXYzine PAMOATE 25 MG CAPSULE PO PRN (11:47)
[2018-09-04 12:13] LABS: Apearance,Urine CLEAR (Clear); Bilirubin,Urine Negative (Negative); Blood, Urine Negative (Negative); Glucose,Urine (UA) >=500 mg/dL (Negative); Hyaline Casts,Urine 10 /LPF (0-3); Ketones,Urine 20 mg/dL (Negative); Mucus,Urine Occasional /LPF (Occasional); Nitrite,Urine Negative (Negative); Protein,Urine Negative; RBC,Urine <1 /HPF (0-4); Urine Color Yellow (Yellow); Urine Specific Gravity 1.016 (1.001-1.035); Urine Urobilinogen < 2.0 EU/DL (0.2-1.0)
[2018-09-04] MEDS: INSULIN REGULAR 100 UNIT/ML SUBCUT SCH ×4 (12:40→21:05)
[2018-09-04] MEDS ORDERED: BACLOFEN 10 MG TABLET PO PRN (15:23)
[2018-09-04] MEDS: traMADol 50 MG TABLET PO PRN (15:36)
[2018-09-04] MEDS: ALBUTEROL/IPRATROPIUM 3 ML NEB RESP TX SCH (19:18)
[2018-09-04] MEDS ORDERED: DIAZEPAM 5 MG TABLET PO ONE (19:30)
[2018-09-04] MEDS: QUEtiapine 100 MG TABLET PO SCH (20:46)
[2018-09-04] MEDS: buPROPion SR 150 MG TABLET PO SCH (20:46)
[2018-09-04] MEDS: SUCRALFATE 1 GM TABLET PO SCH (20:47)
[2018-09-04] MEDS: VENLAFAXINE 75 MG TABLET PO SCH (20:47)
[2018-09-04] MEDS: lamoTRIgine 100 MG TABLET PO SCH (20:48)
[2018-09-04] MEDS: SIMVASTATIN 20 MG TABLET PO SCH (20:48)
[2018-09-04] MEDS: INSULIN GLARGINE 100 UNIT/ML SUBCUT SCH (21:00)
[2018-09-05] MEDS: ALBUTEROL/IPRATROPIUM 3 ML NEB RESP TX SCH ×4 (00:21→20:07)
[2018-09-05] MEDS: traMADol 50 MG TABLET PO PRN (02:22)
[2018-09-05 04:46] LABS: Basophils % 0.4 % (0.0-0.8); Eosinophils # 0.1 10*3/uL (0.0-0.87); Hematocrit 37.6 VOL% (35.7-47.0); Hemoglobin 11.7 GM/DL (12.0-16.0); Immature Granulocytes % 0.6 %; Immature Granulocytes Absolute 0.05 #; Lymphocytes # 1.5 10*3/uL (1.4-4.0); Lymphocytes % 18.3 % (21.3-54.2); Mean Corpuscular HGB Conc 31.1 GM/DL (32-36); Mean Corpuscular Volume 93.1 FL (87-102); Monocytes % 8.9 % (1.7-12.7); Neutrophils % 70.8 % (38.7-73.9); Platelet Count 192 T/CUMM (130-400); Red Blood Count 4.04 MC/CUMM (3.8-5.5); White Blood Count 8.1 T/CUMM (4-12)
[2018-09-05 05:20] LABS: Bilirubin,Total 0.5 MG/DL (0.2-1.0); Calcium 8.7 MG/DL (8.5-10.1); Osmolality,Calculated 284.4 MOS/KG (273-304); Total Protein 6.4 G/DL (6.4-8.3)
[2018-09-05] MEDS ORDERED: DIAZEPAM 5 MG TABLET ONE (06:41)
[2018-09-05] MEDS ORDERED: ceFAZolin 2,000 MG in SYRINGE 1 EACH IV ONE (07:00)
[2018-09-05] MEDS: INSULIN REGULAR 100 UNIT/ML SUBCUT SCH ×4 (07:37→20:53)
[2018-09-05] MEDS: SODIUM CHLORIDE 0.9% 1,000 ML IV SCH (07:38)
[2018-09-05] MEDS: lamoTRIgine 100 MG TABLET PO SCH ×2 (08:11→20:55)
[2018-09-05] MEDS: PANTOPRAZOLE 40 MG TABLET PO SCH (08:11)
[2018-09-05] MEDS: SUCRALFATE 1 GM TABLET PO SCH ×2 (08:11→20:55)
[2018-09-05] MEDS: buPROPion SR 150 MG TABLET PO SCH ×2 (08:11→20:55)
[2018-09-05] MEDS: VENLAFAXINE 75 MG TABLET PO SCH ×2 (08:11→20:54)
[2018-09-05] MEDS: PIOGLITAZONE 15 MG TABLET PO SCH (08:11)
[2018-09-05] MEDS: NICOTINE 14 MG/24 HR PATCH TRANSDERM SCH (08:11)
[2018-09-05] MEDS ORDERED: BACITRACIN OINT 0.9 GM PACK TOP ONE (08:48)
[2018-09-05] MEDS ORDERED: KETOROLAC 30 MG/1 ML VIAL IV PRN (09:04)
[2018-09-05] MEDS ORDERED: MORPHINE 4 MG/1 ML VIAL IV PRN ×2 (09:04)
[2018-09-05] MEDS ORDERED: MAGNESIUM HYDROXIDE SUSP 30 ML UDCUP PO PRN (09:04)
[2018-09-05] MEDS ORDERED: ACETAMINOPHEN 1,000 MG/100 ML VIAL IV ONE (09:12)
[2018-09-05] MEDS ORDERED: ONDANSETRON 4 MG/2 ML VIAL ONE (09:12)
[2018-09-05] MEDS ORDERED: ROCURONIUM 100 MG/10 ML VIAL IV ONE (09:12)
[2018-09-05] MEDS ORDERED: fentaNYL 100 MCG/2 ML VIAL ONE (09:12)
[2018-09-05] MEDS ORDERED: PROPOFOL 200 MG/20 ML VIAL IV ONE (09:12)
[2018-09-05] MEDS ORDERED: SEVOFLURANE 1 UNIT/15 MINUTE INH ONE (09:12)
[2018-09-05] MEDS ORDERED: LACTATED RINGERS 1,000 ML IV SCH (09:30)
[2018-09-05] MEDS: ceFAZolin 2,000 MG in SYRINGE 1 EACH IV SCH (16:31)
[2018-09-05] MEDS: INSULIN GLARGINE 100 UNIT/ML SUBCUT SCH (20:52)
[2018-09-05] MEDS: QUEtiapine 100 MG TABLET PO SCH (20:55)
[2018-09-05] MEDS: SIMVASTATIN 20 MG TABLET PO SCH (20:55)
[2018-09-06] MEDS: ceFAZolin 2,000 MG in SYRINGE 1 EACH IV SCH (00:41)
[2018-09-06] MEDS: ALBUTEROL/IPRATROPIUM 3 ML NEB RESP TX SCH ×3 (00:47→13:40)
[2018-09-06] MEDS ORDERED: SODIUM CHLORIDE 0.9% 1,000 ML IV SCH (03:30)
[2018-09-06 05:02] LABS: Basophils % 0.2 % (0.0-0.8); Eosinophils # 0.1 10*3/uL (0.0-0.87); Eosinophils % 1.6 % (0.00-10.9); Hematocrit 34.3 VOL% (35.7-47.0); Hemoglobin 10.8 GM/DL (12.0-16.0); Immature Granulocytes % 0.3 %; Immature Granulocytes Absolute 0.03 #; Lymphocytes # 1.5 10*3/uL (1.4-4.0); Lymphocytes % 17.5 % (21.3-54.2); Mean Corpuscular HGB Conc 31.5 GM/DL (32-36); Mean Corpuscular Volume 92.7 FL (87-102); Mean Platelet Volume 9.8 FL (9.6-12.0); Neutrophils % 70.4 % (38.7-73.9); Platelet Count 189 T/CUMM (130-400); Red Cell Distribution Width 14.1 % (9.3-17.3); White Blood Count 8.8 T/CUMM (4-12)
[2018-09-06 05:22] LABS: Albumin 2.8 G/DL (3.4-5.0); Bilirubin,Total 0.4 MG/DL (0.2-1.0); Calcium 8.6 MG/DL (8.5-10.1); Total Protein 6.1 G/DL (6.4-8.3)
[2018-09-06] MEDS ORDERED: METOPROLOL TARTRATE 25 MG TABLET PO SCH (09:00)
[2018-09-06] MEDS ORDERED: POTASSIUM CHLORIDE 20 MEQ TABLET PO SCH (09:00)
[2018-09-06] MEDS ORDERED: ERGOCALCIFEROL 50,000 UNIT CAPSULE PO ONE (09:00)
[2018-09-06] MEDS: VENLAFAXINE 75 MG TABLET PO SCH (10:00)
[2018-09-06] MEDS: SUCRALFATE 1 GM TABLET PO SCH (10:01)
[2018-09-06] MEDS: PIOGLITAZONE 15 MG TABLET PO SCH (10:02)
[2018-09-06] MEDS: buPROPion SR 150 MG TABLET PO SCH (10:02)
[2018-09-06] MEDS: NICOTINE 14 MG/24 HR PATCH TRANSDERM SCH (10:03)
[2018-09-06] MEDS: PANTOPRAZOLE 40 MG TABLET PO SCH (10:04)
[2018-09-06] MEDS: lamoTRIgine 100 MG TABLET PO SCH (10:06)
[2018-09-06] MEDS: INSULIN REGULAR 100 UNIT/ML SUBCUT SCH ×3 (10:08→17:03)
[2018-09-06 17:01] VITALS: BP 136/91
[2018-09-13] MEDS ORDERED: ERGOCALCIFEROL 50,000 UNIT CAPSULE PO SCH (09:00)
== END 2018-09-06 18:07 | disposition home or self-care (01) | DRG 493 ==
LOC: N.ED 18:32 → N.TELES 20:18 → N.3E 09-05 10:23
PROVIDERS: ADMIT Family Medicine; ATTEND Family Medicine

== ENCOUNTER 2020-12-23 08:55 | Inpatient (IN) ==
[2020-12-23] MEDS ORDERED: SODIUM CHLORIDE 0.9% 1,000 ML IV STA (09:17)
[2020-12-23 10:02] LABS: Basophils % 0.3 % (0.0-0.8); Hematocrit 41.3 VOL% (35.7-47.0); Hemoglobin 13.9 GM/DL (12.0-16.0); Immature Granulocytes % 1.7 %; Immature Granulocytes Absolute 0.13 #; Lymphocytes # 0.9 10*3/uL (1.4-4.0); Lymphocytes % 11.4 % (21.3-54.2); Mean Corpuscular HGB Conc 33.7 GM/DL (32-36); Mean Corpuscular Volume 90.4 FL (87-102); Mean Platelet Volume 10.4 FL (9.6-12.0); Monocytes % 13.9 % (1.7-12.7); Neutrophils % 72.7 % (38.7-73.9); Platelet Count 183 T/CUMM (130-400); Red Blood Count 4.57 MC/CUMM (3.8-5.5); Red Cell Distribution Width 13.8 % (9.3-17.3); White Blood Count 7.7 T/CUMM (4-12)
[2020-12-23 10:14] LABS: PT Patient Result 11.6 SECS (10.5-12.0); Partial Thromboplastin Time 27.6 SECS (23.8-32.1)
[2020-12-23 10:23] LABS: Band Neutrophils 19 % (0-10); Lymphocytes 7 % (20-55); Platelet Estimate Normal; Segmented Neutrophils 57 % (50-85); Total Cells Counted 100
[2020-12-23] MEDS ORDERED: INSULIN REGULAR 100 UNIT/ML IV STA (10:23)
[2020-12-23 10:24] LABS: Alanine Aminotransferase 22 U/L (13-56); Albumin 3.3 G/DL (3.4-5.0); Alkaline Phosphatase 97 U/L (45-117); Anisocytosis Slight; Aspartate Amino Transferase 24 U/L (0-37); Blood Urea Nitrogen 50 MG/DL (7-18); Calcium 9.2 MG/DL (8.5-10.1); Carbon Dioxide 23 MMOL/L (21-32); Estimated Glom Filtration Rate 63 ML/MIN; Glucose 418 MG/DL (74-106); Macrocytosis Slight; Osmolality,Calculated 318.7 MOS/KG (273-304); Potassium 4.1 MMOL/L (3.5-5.1); Sodium 145 MMOL/L (136-145); Total Protein 7.4 G/DL (6.4-8.2)
[2020-12-23 10:31] LABS: Bilirubin,Urine Negative (Negative); Blood, Urine Negative (Negative); Glucose,Urine (UA) >=500 mg/dL (Negative); Hyaline Casts,Urine 7 /LPF (0-3); Ketones,Urine 20 mg/dL (Negative); Mucus,Urine Occasional /LPF (Occasional); Nitrite,Urine Negative (Negative); Protein,Urine 30 MG/DL; RBC,Urine 1 /HPF (0-4); Urine Appearance CLEAR (Clear); Urine Color Yellow (Yellow); Urine Specific Gravity 1.017 (1.001-1.035); Urine Urobilinogen < 2.0 EU/DL (0.2-1.0)
[2020-12-23 10:59] LABS: Barbiturates Screen,Urine Negative (Negative); Benzodiazepines Screen,Urine Negative (Negative); Cannabinoid Screen,Urine Negative (Negative); Opiate Screen,Urine Positive (Negative); Phencyclidine Screen,Urine Negative (Negative)
[2020-12-23] MEDS ORDERED: cefTRIAXone 1,000 MG in SODIUM CHLORIDE 0.9% 100 ML IV STA (11:00)
[2020-12-23] MEDS ORDERED: DEXTROSE 10% 1,000 ML IV PRN (15:21)
[2020-12-23] MEDS ORDERED: DEXTROSE 50% 25 GM/50 ML VIAL IV PRN ×2 (15:21→15:52)
[2020-12-23] MEDS ORDERED: GLUCAGON 1 MG VIAL IM PRN ×2 (15:21→15:52)
[2020-12-23] MEDS: SODIUM CHLORIDE 0.45% 1,000 ML IV SCH (17:30)
[2020-12-23] MEDS: AMINO ACIDS/DEXT/LYTES 4.25-5% 2,000 ML IV SCH (17:30)
[2020-12-23] MEDS: metroNIDAZOLE INJ 500 MG/100 ML PREMIX IV SCH (17:31)
[2020-12-23] MEDS: INSULIN REGULAR 100 UNIT/ML SUBCUT SCH (18:04)
[2020-12-23] MEDS: ALBUTEROL/IPRATROPIUM 3 ML NEB RESP TX SCH (19:07)
[2020-12-23] MEDS: INSULIN GLARGINE 100 UNIT/ML SUBCUT SCH (21:59)
[2020-12-24] MEDS: ALBUTEROL/IPRATROPIUM 3 ML NEB RESP TX SCH ×4 (00:45→19:37)
[2020-12-24] MEDS: metroNIDAZOLE INJ 500 MG/100 ML PREMIX IV SCH ×3 (01:08→18:30)
[2020-12-24] MEDS: SODIUM CHLORIDE 0.45% 1,000 ML IV SCH ×3 (01:08→22:22)
[2020-12-24] MEDS: INSULIN REGULAR 100 UNIT/ML SUBCUT SCH ×4 (01:09→18:56)
[2020-12-24 04:51] LABS: Basophils % 0.5 % (0.0-0.8); Hematocrit 38.8 VOL% (35.7-47.0); Hemoglobin 13.2 GM/DL (12.0-16.0); Immature Granulocytes % 1.5 %; Immature Granulocytes Absolute 0.13 #; Lymphocytes # 1.2 10*3/uL (1.4-4.0); Lymphocytes % 14.4 % (21.3-54.2); Mean Platelet Volume 10.5 FL (9.6-12.0); Monocytes % 14.3 % (1.7-12.7); Neutrophils % 69.3 % (38.7-73.9); Platelet Count 219 T/CUMM (130-400); Red Blood Count 4.17 MC/CUMM (3.8-5.5); Red Cell Distribution Width 13.8 % (9.3-17.3); White Blood Count 8.6 T/CUMM (4-12)
[2020-12-24 05:20] LABS: Bilirubin,Total 0.5 MG/DL (0.20-1.00); Calcium 8.6 MG/DL (8.5-10.1); Osmolality,Calculated 311.6 MOS/KG (273-304); Total Protein 6.7 G/DL (6.4-8.2)
[2020-12-24] MEDS: INSULIN GLARGINE 100 UNIT/ML SUBCUT SCH ×2 (09:54→22:23)
[2020-12-24] MEDS: NICOTINE 14 MG/24 HR PATCH TRANSDERM SCH (09:54)
[2020-12-24] MEDS ORDERED: DEXTROSE 10% 1,000 ML IV PRN (13:34)
[2020-12-24] MEDS ORDERED: ZINC/COPPER/MANGANESE/SELENIUM 1 ML, MULTIVITAMIN INJ 10 ML in AMINO ACIDS/DEXT/LYTES 4... IV SCH (17:00)
[2020-12-24] MEDS: AMINO ACIDS/DEXT/LYTES 4.25-5% 2,000 ML IV SCH (18:36)
[2020-12-24] MEDS: cefTRIAXone 1,000 MG in SODIUM CHLORIDE 0.9% 100 ML IV SCH (22:23)
[2020-12-25] MEDS: ALBUTEROL/IPRATROPIUM 3 ML NEB RESP TX SCH ×4 (00:13→20:10)
[2020-12-25] MEDS: INSULIN REGULAR 100 UNIT/ML SUBCUT SCH ×4 (01:38→18:04)
[2020-12-25] MEDS: metroNIDAZOLE INJ 500 MG/100 ML PREMIX IV SCH ×3 (02:38→18:03)
[2020-12-25] MEDS: SODIUM CHLORIDE 0.45% 1,000 ML IV SCH ×2 (02:39→11:13)
[2020-12-25 06:21] LABS: Basophils % 0.2 % (0.0-0.8); Hematocrit 34.7 VOL% (35.7-47.0); Hemoglobin 12.3 GM/DL (12.0-16.0); Immature Granulocytes % 2.5 %; Immature Granulocytes Absolute 0.21 #; Lymphocytes # 1.9 10*3/uL (1.4-4.0); Mean Corpuscular HGB Conc 35.4 GM/DL (32-36); Mean Corpuscular Volume 92.8 FL (87-102); Mean Platelet Volume 9.9 FL (9.6-12.0); Monocytes % 11.8 % (1.7-12.7); Neutrophils % 62.5 % (38.7-73.9); Platelet Count 205 T/CUMM (130-400); Red Blood Count 3.74 MC/CUMM (3.8-5.5); Red Cell Distribution Width 13.4 % (9.3-17.3); White Blood Count 8.4 T/CUMM (4-12)
[2020-12-25 06:44] LABS: Albumin 2.8 G/DL (3.4-5.0); Calcium 8.5 MG/DL (8.5-10.1); Osmolality,Calculated 313.3 MOS/KG (273-304); Potassium 3.5 MMOL/L (3.5-5.1); Total Protein 6.3 G/DL (6.4-8.2)
[2020-12-25 06:44] LABS: Anisocytosis 1+; Platelet Estimate Normal
[2020-12-25 06:53] LABS: Risk Ratio 3.64; VLDL Cholesterol 32.8 MG/DL
[2020-12-25] MEDS ORDERED: LORazepam 2 MG/1 ML VIAL IV ONE (11:00)
[2020-12-25] MEDS: NICOTINE 14 MG/24 HR PATCH TRANSDERM SCH (11:12)
[2020-12-25] MEDS: INSULIN GLARGINE 100 UNIT/ML SUBCUT SCH ×2 (11:12→21:16)
[2020-12-25] MEDS: ASPIRIN EC 81 MG TABLET PO SCH (12:27)
[2020-12-25] MEDS ORDERED: HYDROmorphone 2 MG/1 ML VIAL IV PRN (15:18)
[2020-12-25] MEDS ORDERED: MANGANESE IV SCH (17:00)
[2020-12-25] MEDS ORDERED: MULTIVITAMIN IV SCH (17:00)
[2020-12-25] MEDS ORDERED: ZINC IV SCH (17:00)
[2020-12-25] MEDS ORDERED: COPPER IV SCH (17:00)
[2020-12-25] MEDS ORDERED: SELENIUM IV SCH (17:00)
[2020-12-25] MEDS ORDERED: [UNRECOGNIZED DRUG - OTHER] IV SCH (17:00)
[2020-12-25] MEDS: cefTRIAXone 1,000 MG in SODIUM CHLORIDE 0.9% 100 ML IV SCH (21:17)
[2020-12-26] MEDS: metroNIDAZOLE INJ 500 MG/100 ML PREMIX IV SCH ×3 (00:18→18:40)
[2020-12-26] MEDS: SODIUM CHLORIDE 0.45% 1,000 ML IV SCH ×3 (00:19→21:29)
[2020-12-26] MEDS: INSULIN REGULAR 100 UNIT/ML SUBCUT SCH ×3 (00:19→18:00)
[2020-12-26] MEDS: ALBUTEROL/IPRATROPIUM 3 ML NEB RESP TX SCH ×4 (00:45→19:10)
[2020-12-26 06:33] LABS: Basophils % 0.4 % (0.0-0.8); Eosinophils # 0.1 10*3/uL (0.0-0.87); Eosinophils % 0.6 % (0.00-10.9); Hematocrit 36.9 VOL% (35.7-47.0); Hemoglobin 12.8 GM/DL (12.0-16.0); Immature Granulocytes % 2.1 %; Immature Granulocytes Absolute 0.16 #; Lymphocytes # 2.6 10*3/uL (1.4-4.0); Lymphocytes % 33.1 % (21.3-54.2); Mean Corpuscular HGB Conc 34.7 GM/DL (32-36); Mean Corpuscular Volume 95.8 FL (87-102); Mean Platelet Volume 10.4 FL (9.6-12.0); Monocytes % 8.4 % (1.7-12.7); Neutrophils % 55.4 % (38.7-73.9); Platelet Count 224 T/CUMM (130-400); Red Blood Count 3.85 MC/CUMM (3.8-5.5); Red Cell Distribution Width 13.6 % (9.3-17.3); White Blood Count 7.7 T/CUMM (4-12)
[2020-12-26] MEDS: INSULIN GLARGINE 100 UNIT/ML SUBCUT SCH ×2 (09:25→21:29)
[2020-12-26] MEDS: ASPIRIN EC 81 MG TABLET PO SCH (09:25)
[2020-12-26] MEDS: NICOTINE 14 MG/24 HR PATCH TRANSDERM SCH (09:35)
[2020-12-26] MEDS ORDERED: FAT EMULSION 20% 250 ML IV SCH (14:00)
[2020-12-26] MEDS ORDERED: ZINC/COPPER/MANGANESE/SELENIUM 1 ML, MULTIVITAMIN INJ 10 ML in AMINO ACIDS/DEXT/LYTES 4... IV SCH (17:00)
[2020-12-26] MEDS: cefTRIAXone 1,000 MG in SODIUM CHLORIDE 0.9% 100 ML IV SCH (21:29)
[2020-12-27] MEDS: SODIUM CHLORIDE 0.45% 1,000 ML IV SCH ×3 (00:38→08:24)
[2020-12-27] MEDS: ALBUTEROL/IPRATROPIUM 3 ML NEB RESP TX SCH ×2 (00:50→06:50)
[2020-12-27] MEDS: INSULIN REGULAR 100 UNIT/ML SUBCUT SCH ×3 (01:47→12:08)
[2020-12-27] MEDS: metroNIDAZOLE INJ 500 MG/100 ML PREMIX IV SCH ×2 (02:53→08:23)
[2020-12-27 07:24] LABS: Basophils % 0.3 % (0.0-0.8); Eosinophils # 0.1 10*3/uL (0.0-0.87); Hematocrit 31.6 VOL% (35.7-47.0); Hemoglobin 11.1 GM/DL (12.0-16.0); Immature Granulocytes % 1.6 %; Immature Granulocytes Absolute 0.11 #; Lymphocytes # 1.8 10*3/uL (1.4-4.0); Lymphocytes % 25.5 % (21.3-54.2); Mean Corpuscular HGB Conc 35.1 GM/DL (32-36); Mean Corpuscular Volume 95.5 FL (87-102); Mean Platelet Volume 10.6 FL (9.6-12.0); Monocytes % 9.5 % (1.7-12.7); Neutrophils % 61.1 % (38.7-73.9); Platelet Count 195 T/CUMM (130-400); Red Blood Count 3.31 MC/CUMM (3.8-5.5); Red Cell Distribution Width 13.7 % (9.3-17.3); White Blood Count 6.9 T/CUMM (4-12)
[2020-12-27 08:01] LABS: Albumin 2.4 G/DL (3.4-5.0); Bilirubin,Total 0.8 MG/DL (0.20-1.00); Calcium 7.9 MG/DL (8.5-10.1); Osmolality,Calculated 295.4 MOS/KG (273-304); Potassium 2.8 MMOL/L (3.5-5.1); Total Protein 5.3 G/DL (6.4-8.2)
[2020-12-27] MEDS: INSULIN GLARGINE 100 UNIT/ML SUBCUT SCH (08:23)
[2020-12-27] MEDS: ASPIRIN EC 81 MG TABLET PO SCH (08:23)
[2020-12-27] MEDS: NICOTINE 14 MG/24 HR PATCH TRANSDERM SCH (08:24)
[2020-12-27] MEDS ORDERED: POTASSIUM CHLORIDE 10 MEQ TABLET PO SCH (09:00)
[2020-12-27] MEDS: POTASSIUM CHLORIDE RIDER 10 MEQ/100 ML PREMIX IV SCH ×2 (09:14→11:43)
[2020-12-27 11:58] VITALS: BP 149/66
== END 2020-12-27 13:22 | disposition home or self-care (01) | DRG 56 ==
LOC: EDBD → EDUNIT# → N.ED 08:55 → N.EDINP 12:36 → N.5E 14:37
PROVIDERS: ADMIT Family Medicine; ATTEND Family Medicine